=== PATIENT | male | born 1940 | race Caucasian/White ===

== ENCOUNTER 2019-02-18 06:43 | Emergency (ER) | payer MEDICARE, OTHER ==
[2019-02-18] MEDS ORDERED: Sodium Chloride 0.9% 10 ML Syringe FLUSH PRN (07:00)
[2019-02-18] MEDS ORDERED: predniSONE 20 MG Tab PO ONE (08:00)
[2019-02-18] MEDS ORDERED: valACYclovir 1,000 MG Tab PO ONE (08:01)
[2019-02-18] MEDS ORDERED: valACYclovir 500 MG Tab ONE (08:05)
[2019-02-18] MEDS ORDERED: predniSONE 20 MG Tab ONE (08:05)
--- NOTE | 2019-02-18 08:09 | EDM.PDOC ---
ED HPI GENERAL MEDICAL PROBLEM - General Chief Complaint: Neuro Symptoms/Deficits Stated Complaint: POSS STROKE Time Seen by Provider: 02/18/19 06:56 Source of Information: Reports: Patient, Other (friends) History Limitations: Reports: No Limitations - History of Present Illness INITIAL COMMENTS - FREE TEXT/NARRATIVE: A stroke alert was called. The patient presents with right sided facial droop. This started 2 days ago. His last time know well was 02/16/19 at 9am. He says it started with some tingling to the right side of his head. Friends came over this morning to visit and they noticed he had right sided facial droop. He has no other symptoms such as arm or leg weakness. His eye is red and dry. He has no fever, chills, cough, congestion, chest pain, shortness of breath, abdominal pain, nausea or vomiting. Onset: Gradual Duration: Day(s): Location: Reports: Face Severity: Moderate Improves with: Reports: None Worsens with: Reports: None Associated Symptoms: Reports: No Other Symptoms - Related Data Allergies Allergy/AdvReac Type Severity Reaction Status Date / Time No Known Allergies Allergy Verified 02/18/19 06:59 Home Meds: Home Meds predniSONE [Prednisone] 60 mg PO DAILY #18 tablet 02/18/19 [Rx] valACYclovir [Valtrex] 1,000 mg PO TID #21 tab 02/18/19 [Rx] ED ROS GENERAL - Review of Systems Review Of Systems: See Below Constitutional: Reports: No Symptoms HEENT: Reports: No Symptoms Respiratory: Reports: No Symptoms Cardiovascular: Reports: No Symptoms Endocrine: Reports: No Symptoms GI/Abdominal: Reports: No Symptoms : Reports: No Symptoms Musculoskeletal: Reports: No Symptoms Skin: Reports: No Symptoms Neurological: Reports: Other (Right sided facial droop) ED EXAM, NEURO - Physical Exam Exam: See Below Exam Limited By: No Limitations General Appearance: Alert, No Apparent Distress Eye Exam: Right Eye: Conjunctival Injection Ears: Normal External Exam Nose: Normal Inspection Head Exam: Atraumatic, Normocephalic Neck: Normal Inspection Respiratory/Chest: No Respiratory Distress, Lungs Clear, Normal Breath Sounds Cardiovascular: Regular Rate, Rhythm, No Edema, No Murmur GI/Abdominal: Soft, Non-Tender, No Organomegaly, No Mass Neurological: Alert, Other (Right sided facial droop that does not spare his forehead. He has trouble closing his right eye. He has no arm or leg weakness. He walked into the ER just fine.) EKG INTERPRETATION EKG Date: 02/18/19 Time: 06:59 Rhythm: NSR Rate (Beats/Min): 91 [place]: Normal P-Wave: Present QRS: Normal ST-T: Normal QT: Normal Course - Vital Signs Last Recorded V/S: Last Vital Signs Temp 98.2 F 02/18/19 07:37 Pulse 78 02/18/19 07:37 Resp 18 02/18/19 07:37 BP 145/88 H 02/18/19 07:37 Pulse Ox 94 L 02/18/19 07:37 - Orders/Labs/Meds Orders: Active Orders 24 hr Category Date Time Status Cardiac Monitoring [RC] . DIRECTED Care 02/18/19 07:00 Active EKG Documentation Completion [RC] STAT Care 02/18/19 07:01 Active Peripheral IV Care [RC] . DIRECTED Care 02/18/19 07:01 Active Head wo Cont [CT] Stat Exams 02/18/19 07:01 Ordered Head wo Cont [CT] Stat Exams 02/18/19 07:01 Taken COMPREHENSIVE METABOLIC PN,CMP [CHEM] Stat Lab 02/18/19 06:53 Received INR,PT,PROTHROMBIN TIME [COAG] Stat Lab 02/18/19 06:53 Received PTT,PARTIAL THROMBOPLSTIN TIME [COAG] Stat Lab 02/18/19 06:53 Received TROPONIN I [CHEM] Stat Lab 02/18/19 06:53 Received Carboxymethylcellulose Sodium [Refresh Liquigel 1%] Med 02/18/19 08:15 Ordered 1 ml EYERT ASDIRECTED Sodium Chloride 0.9% [Saline Flush] Med 02/18/19 07:00 Active 10 ml FLUSH ASDIRECTED PRN predniSONE Med 02/18/19 08:00 Once 60 mg PO ONETIME ONE valACYclovir [Valtrex] Med 02/18/19 08:05 Once 1,000 mg .ROUTE .STK-MED ONE valACYclovir [Valtrex] Med 02/18/19 08:01 Once 1,000 mg PO ONETIME ONE Peripheral IV Insertion Adult [OM.PC] Stat Oth 02/18/19 07:00 Ordered Medication Orders Sodium Chloride (Saline Flush) 10 ml FLUSH ASDIRECTED PRN PRN Reason: Keep Vein Open Labs: Laboratory Tests 02/18/19 02/18/19 Range/Units 06:52 06:53 WBC 10.63 H (4.23-9.07) K/mm3 RBC 4.68 (4.63-6.08) M/mm3 Hgb 14.9 (13.7-17.5) gm/L Hct 45.3 (40.1-51.0) % MCV 96.8 H (79.0-92.2) fl MCH 31.8 (25.7-32.2) pg MCHC 32.9 (32.2-35.5) g/dl RDW Std Deviation 46.1 H (35.1-43.9) fL Plt Count 420 H (163-337) K/mm3 MPV 10.1 (9.4-12.3) fl Neut % (Auto) 65.7 (34.0-67.9) % Lymph % (Auto) 23.3 (21.8-53.1) % [place] % (Auto) 6.6 (5.3-12.2) % Eos % (Auto) 3.5 (0.8-7.0) Baso % (Auto) 0.6 (0.1-1.2) % Neut # (Auto) 6.99 H (1.78-5.38) K/mm3 Lymph # (Auto) 2.48 (1.32-3.57) K/mm3 [place] # (Auto) 0.70 (0.30-0.82) K/mm3 Eos # (Auto) 0.37 (0.04-0.54) K/mm3 Baso # (Auto) 0.06 (0.01-0.08) K/mm3 POC Glucose 116 H (83-110) mg/dL Meds: Medications Generic Name Dose Route Start Last Admin Trade Name Freq PRN Reason Stop Dose Admin Sodium Chloride 10 ml 02/18/19 07:00 Saline Flush FLUSH ASDIRECTED PRN Keep Vein Open Discontinued Medications Generic Name Dose Route Start Last Admin Trade Name Freq PRN Reason Stop Dose Admin Prednisone Confirm 02/18/19 08:05 Prednisone Administered 02/18/19 08:06 Dose 60 mg .ROUTE .STK-MED ONE Prednisone 60 mg 02/18/19 08:00 Prednisone PO 02/18/19 08:01 ONETIME ONE Valacyclovir HCl Confirm 02/18/19 08:05 Valtrex Administered 02/18/19 08:06 Dose 1,000 mg .ROUTE .STK-MED ONE Valacyclovir HCl 1,000 mg 02/18/19 08:01 Valtrex PO 02/18/19 08:02 ONETIME ONE - Re-Assessments/Exams Free Text/Narrative Re-Assessment/Exam: 02/18/19 08:22 A stroke alert was called. The patient was last known well 02/16/19 at 9am. I ordered a CT of his head, EKG and labs. His EKG looks good. His CT shows expected age-related atrophy and chronic white matter ischemic changes. No acute intra-axial or extra-axial hemorrhage appreciated. His BS is 116 and his WBC is elevated slightly at 10.63. I ordered prednisone 60mg here and valacyclivir. I gave him prescriptions for more. He has smith's palsy. Departure - Departure Time of Disposition: 08:05 Disposition: Home, Self-Care 01 Condition: Good Clinical Impression: Smith's palsy - Discharge Information *PRESCRIPTION DRUG MONITORING PROGRAM REVIEWED*: Not Applicable *COPY OF PRESCRIPTION DRUG MONITORING REPORT IN PATIENT MACK: Not Applicable Prescriptions: predniSONE [Prednisone] 60 mg PO DAILY #18 tablet valACYclovir [Valtrex] 1,000 mg PO TID #21 tab Instructions: Smith Palsy, Adult Referrals: Júnior Chicas MD [Primary Care Provider] - 1 Week Forms: ED Department Discharge Additional Instructions: Take the prednisone 3 pills or 60mg daily for 6 days. Take the valacycliver 1 pill 3 times per day for 7 days. Wear an eye patch at night to protect your eye. Use the refresh gel in your eye 4 times per day or more to keep your eye moist. Follow up with Dr Yanez in a week. Please return if you are worse. - My Orders Last 24 Hours: My Active Orders 02/18/19 06:53 COMPREHENSIVE METABOLIC PN,CMP [CHEM] Stat INR,PT,PROTHROMBIN TIME [COAG] Stat PTT,PARTIAL THROMBOPLSTIN TIME [COAG] Stat TROPONIN I [CHEM] Stat 02/18/19 07:00 Cardiac Monitoring [RC] . DIRECTED Sodium Chloride 0.9% [Saline Flush] 10 ml FLUSH ASDIRECTED PRN Peripheral IV Insertion Adult [OM.PC] Stat 02/18/19 07:01 EKG Documentation Completion [RC] STAT Peripheral IV Care [RC] . DIRECTED Head wo Cont [CT] Stat Head wo Cont [CT] Stat 02/18/19 08:00 predniSONE 60 mg PO ONETIME ONE 02/18/19 08:01 valACYclovir [Valtrex] 1,000 mg PO ONETIME ONE 02/18/19 08:15 Carboxymethylcellulose Sodium [Refresh Liquigel 1%] 1 ml EYERT ASDIRECTED - Assessment/Plan Last 24 Hours: My Active Orders 02/18/19 06:53 COMPREHENSIVE METABOLIC PN,CMP [CHEM] Stat INR,PT,PROTHROMBIN TIME [COAG] Stat PTT,PARTIAL THROMBOPLSTIN TIME [COAG] Stat TROPONIN I [CHEM] Stat 02/18/19 07:00 Cardiac Monitoring [RC] . DIRECTED Sodium Chloride 0.9% [Saline Flush] 10 ml FLUSH ASDIRECTED PRN Peripheral IV Insertion Adult [OM.PC] Stat 02/18/19 07:01 EKG Documentation Completion [RC] STAT Peripheral IV Care [RC] . DIRECTED Head wo Cont [CT] Stat Head wo Cont [CT] Stat 02/18/19 08:00 predniSONE 60 mg PO ONETIME ONE 02/18/19 08:01 valACYclovir [Valtrex] 1,000 mg PO ONETIME ONE 02/18/19 08:15 Carboxymethylcellulose Sodium [Refresh Liquigel 1%] 1 ml EYERT ASDIRECTED
[2019-02-18] MEDS ORDERED: Carboxymethylcellulose Sodium 1% Ophth Gel 15 ML Bottle EYERT SCH (08:15)
--- NOTE | 2019-02-19 08:02 | CT ---
Head CT Technique: Multiple axial sections through the brain were obtained. Intravenous contrast was not utilized. Comparison: No prior intracranial imaging is available. Findings: Ventricles along with basal cisterns and sulci over the convexities are mildly prominent. Minimal diminished density is noted within the periventricular white matter. No other abnormal parenchymal densities are seen. No evidence of intracranial hemorrhage. No midline shift or mass effect is seen. Bone window settings were reviewed which show no acute calvarial abnormality. Slight mucosal thickening seen within the inferior left mastoid sinus. More prominent mucosal thickening is noted within the right mastoid sinus. Soft tissue density is noted within the right middle ear cavity and attic of the right middle ear. Impression: 1. Mastoid findings as noted above. Differential includes otitis media as well as cholesteatoma. 2. Senescent change. 3. No acute intracranial abnormality appreciated. Diagnostic code #9 I mostly agree with preliminary report from [facility] (additional differential given on findings within the right mastoid sinus), finalized on 02/18/19, 8:14 AM Central Time, code #2
== END 2019-02-18 08:36 | disposition home or self-care (01) ==
LOC: JD.ED 06:43
DX: G51.0 Bell's palsy (principal); Z79.899 Other long term (current) drug therapy
CPT/HCPCS: 36415; 70450; 80053; 82962; 84484; 85025; 85610; 85730; 93005; 99284; A9270; 93010

== ENCOUNTER 2020-07-02 10:43 | Emergency (ER) | payer MEDICARE, OTHER ==
[2020-07-02] MEDS ORDERED: FLU Vacc QV2020-21(65YR UP)/PF 240 MCG/0.7 ML Syringe IM ONE (11:00)
[2020-07-02] MEDS ORDERED: Albuterol/Ipratropium 3.0-0.5 MG/3 ML Neb Soln NEB PRN (11:09)
[2020-07-02] MEDS ORDERED: Diphtheria,Pertussis(Acell),Tetanus Vaccine 0.5 ML Syringe IM ONE (11:09)
--- NOTE | 2020-07-02 11:10 | EDM.PDOC ---
ED HPI GENERAL MEDICAL PROBLEM - General Chief Complaint: General Stated Complaint: [facility] Time Seen by Provider: 07/02/20 10:55 Source of Information: Reports: Patient, EMS History Limitations: Reports: No Limitations - History of Present Illness INITIAL COMMENTS - FREE TEXT/NARRATIVE: 80-year-old male presents to the ED per [facility] after apparently pema mbling and [place]. There was some concern initially that he suffered a closed head injury with loss of consciousness but he denies that he hit his head at all and did not lose consciousness. He has some minor scrapes on the palmar aspect of his right hand. A few of them were bleeding. He denies any pain in his neck ribs upper or lower back. He is able to walk with no pain in his hips. 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 He is suffering from upper respiratory tract infection with paroxysmal productive cough and some shortness of breath on walking. He believes this may have caused him to come weak and his legs gave out on him. Cannot remember when his last tetanus shot was. Patient does ambulate with the aid of a cane. Onset: Today, Sudden Onset Date: 07/02/20 Onset Time: 10:15 Duration: Minutes:, Constant Location: Reports: Upper Extremity, Right (Multiple abrasions to his right palmar hand and third finger dorsally.) Quality: Reports: Ache Severity: Mild Improves with: Reports: None Worsens with: Reports: None Context: Reports: Trauma (Sidewalk today.). Denies: Activity, Exercise, Lifting, Sick Contact Associated Symptoms: Reports: Cough, cough w sputum, Malaise, Shortness of Br eath, Weakness. Denies: Confusion, Chest Pain, Diaphoresis, Fever/Chills, Headaches, Loss of Appetite, Nausea/Vomiting, Rash, Seizure, Syncope Treatments FINE UNHAIRER: Reports: Other (see below) (Sinex to help break up his phlegm in his chest.) - Related Data Allergies Allergy/AdvReac Type Severity Reaction Status Date / Time No Known Allergies Allergy Verified 07/02/20 10:52 Home Meds: Home Meds predniSONE [Prednisone] 60 mg PO DAILY #18 tablet 02/18/19 [Rx] valACYclovir [Valtrex] 1,000 mg PO TID #21 tab 02/18/19 [Rx] Doxycycline [Vibra-Tabs] 100 mg PO Q12HR #16 tab 07/02/20 [Rx] Past Medical History Respiratory History: Reports: COPD Musculoskeletal History: Reports: Back Pain, Chronic, Osteoarthritis Endocrine/Metabolic History: Reports: Osteoporosis Dermatologic History: Reports: Other (See Below) - Past Surgical History GI Surgical History: Reports: Hernia, Abdominal Social & Family History - Tobacco Use Tobacco Use Status *Q: Never Tobacco User - Recreational Drug Use Recreational Drug Use: No - Living Situation & Occupation Living situation: Reports: Occupation: Retired ED ROS GENERAL - Review of Systems Review Of Systems: See Below Constitutional: Reports: Malaise, Weakness, Fatigue, Decreased Appetite. Denies: Fever, Chills HEENT: Reports: Glasses, Other Respiratory: Reports: Shortness of Breath (Does have decreased visual acuity due to macular degeneration.), Wheezing, Cough (Active cough. Worse recently since he is contracted an upper respiratory tract infection.). Denies: Pleuritic Chest Pain Cardiovascular: Reports: Blood Pressure Problem, Lightheadedness. Denies: Chest Pain, Claudication, Orthopnea Endocrine: Reports: Fatigue GI/Abdominal: Reports: Constipation, Other (Patient problems with constipation occasional heartburn) : Reports: Frequency, Other Musculoskeletal: Reports: Neck Pain, Back Pain, Joint Pain (His hips low back and both knees.) Skin: Reports: No Symptoms Neurological: Reports: Dizziness, Difficulty Walking (Occasional dizziness.). Denies: Confusion Psychiatric: Reports: No Symptoms Hematologic/Lymphatic: Reports: No Symptoms ( Uses a cane to aid his ambulation due to bad knees.) Immunologic: Reports: No Symptoms ED EXAM, GENERAL - Physical Exam Exam: See Below Exam Limited By: No Limitations General Appearance: Alert, WD/WN, No Apparent Distress, Other (Frustrated about being at the hospital as he did not feel he needed to come by ambulance. Temperature is 36.4 pulse is 76 and sinus respiratory to 16 O2 sats 92% room air BP 149 111 initially but it is come down to 1 5277) Eye Exam: Bilateral Eye: Normal Inspection, PERRL Throat/Mouth: Normal Inspection, Normal Lips, Normal Oropharynx, Other Head: Atraumatic, Normocephalic (Dental injuries.), Other Neck: Normal Inspection, Supple (There are no outward signs of head or facial trauma.), Non-Tender, Full Range of Motion. No: Carotid Bruit, Limited Range of Motion, Lymphadenopathy (L), Lymphadenopathy (R), Thyromegaly Respiratory/Chest: No Respiratory Distress, No Accessory Muscle Use, Rhonchi, Wheezing (Jorge throughout all lung horton. No expiratory wheeze.), Other (Does have a productive sounding cough.) Cardiovascular: Regular Rate, Rhythm, No Edema, No Gallop, No JVD, No Murmur, No Rub Peripheral Pulses: 2+: Carotid (L), Carotid (R), Posterior Tibial (L), Posterior Tibial (R), Dorsalis Pedis (L), Dorsalis Pedis (R) GI/Abdominal: Normal Bowel Sounds, Soft, Non-Tender, No Organomegaly, No Abnormal Bruit, No Mass, Pelvis Stable, Other (Signs of abdominal injuries.) Back Exam: Normal Inspection, Full Range of Motion, Other. No: CVA Tenderness (L), CVA Tenderness (R) Extremities: Other (Mild kyphosis thoracic spine. Evidence of psoriasis both elbows and knees. No significant trauma to either knee either I will either elbow. He has a few scrapes on his right fourth PIP joint and DIP joint and both thenar and hypothenar eminences of his right hand which were cleansed and dressed.) Neurological: Alert, Oriented, CN II-XII Intact, Normal Cognition Psychiatric: Normal Affect, Normal Mood Skin Exam: Warm, Dry, Intact, Normal Color, Other (Superficial abrasions palmar aspect right hand and right dorsal third finger) Course - Vital Signs Last Recorded V/S: Last Vital Signs Temp 36.4 C 07/02/20 10:49 Pulse 76 07/02/20 10:49 Resp 16 07/02/20 10:49 BP 149/111 H 07/02/20 10:49 Pulse Ox 97 07/02/20 11:29 - Orders/Labs/Meds Orders: Active Orders 24 hr Category Date Time Status Influenza Vaccine Charge [RC] .DISCHARGE Care 07/02/20 10:55 Active RT Aerosol Therapy [RC] ASDIRECTED Care 07/02/20 11:09 Active Vaccines to be Administered [RC] PER UNIT ROUTINE Care 07/02/20 11:10 Active Chest 1V Frontal [CR] Stat Exams 07/02/20 11:09 Ordered Albuterol/Ipratropium [DuoNeb 3.0-0.5 MG/3 ML] Med 07/02/20 11:09 Active 3 ml NEB Q4H PRN Medication Orders Albuterol/Ipratropium (Duoneb 3.0-0.5 Mg/3 Ml) 3 ml NEB Q4H PRN PRN Reason: Shortness Of Breath/wheezing Last Admin: 07/02/20 11:28 Dose: 3 ml Documented by: OMID Meds: Medications Generic Name Dose Route Start Last Admin Trade Name Freq PRN Reason Stop Dose Admin Albuterol/Ipratropium 3 ml 07/02/20 11:09 07/02/20 11:28 Duoneb 3.0-0.5 Mg/3 Ml NEB 3 ml Q4H PRN Administration Shortness Of Breath/wheezing Discontinued Medications Generic Name Dose Route Start Last Admin Trade Name Freq PRN Reason Stop Dose Admin Diphtheria/Tetanus/Acell Pertussis 0.5 ml 07/02/20 11:09 Adacel IM 07/02/20 11:10 .ONCE ONE Influenza Virus Vaccine 240 mcg 07/02/20 11:00 Fluzone High-Dose Quad 2020-21 IM 07/02/20 11:01 .ONCE ONE - Radiology Interpretation Free Text/Narrative:: 80-year-old male presents to the ED per [facility] after apparently stumbling and [place] the [place] He scraped up his right hand and his right finger dorsally. He suffered no other major contusions or injuries. Certainly no injuries to his head neck chest or spine or hips. He was given a tetanus shot to update him for the next 10 years. His chest sounded very congested with rhonchi throughout. Chest x-ray done does not show any signs of pneumonia. He did receive a DuoNeb treatment and he felt this helped. Clinically he has bronchitis. Going to place him on doxycycline 100 mg twice daily for the next 8 days to clear out bronchitis since his O2 sats are only 92 to 93% clinically has significant COPD. Advised follow-up with his primary care practitioner if any further problems occur. Departure - Departure Time of Disposition: 11:52 Disposition: Home, Self-Care 01 Condition: Fair Clinical Impression: Fall Qualifiers: Encounter type: initial encounter Qualified Code(s): W19.XXXA - Unspecified fall, initial encounter Abrasion of right hand and fingers Qualifiers: Encounter type: initial encounter Qualified Code(s): S60.511A - Abrasion of right hand, initial encounter; S60.419A - Abrasion of unspecified finger, initial encounter Acute bronchitis Qualifiers: Bronchitis organism: other organism Qualified Code(s): J20.8 - Acute bronchitis due to other specified organisms - Discharge Information *PRESCRIPTION DRUG MONITORING PROGRAM REVIEWED*: Not Applicable *COPY OF PRESCRIPTION DRUG MONITORING REPORT IN PATIENT MACK: Not Applicable Prescriptions: Doxycycline [Vibra-Tabs] 100 mg PO Q12HR #16 tab Instructions: Wound Care, Adult, Abrasion Forms: ED Department Discharge Additional Instructions: Evaluation in the emergency room today in regards to fall outside the post office this morning on the sidewalk. He suffered multiple abrasions to the palmar aspect of your right hand and the right dorsal third finger. Daily cleanse the wounds with soap and water and placed topical antibiotic such as bacitracin Polysporin on them once daily and cover with bandage if needed to keep clean. In regards to your chest infection you have bronchitis and I would suggest using antibiotic doxycycline 100 mg twice daily for the next 8 days to clear up infection. You can continue to use the Mucinex medication as well to help break up the sputum. Follow-up with your personal care physician if any further problems occur. Clinically you do not show evidence of COVID-19 illness. Sepsis Event Note (ED) - Evaluation Sepsis Screening Result: No Definite Risk - Focused Exam Vital Signs: Vital Signs Temp Pulse Resp BP Pulse Ox Pulse Ox 07/02/20 11:29 97 07/02/20 10:49 36.4 C 76 16 149/111 H 92 L - My Orders Last 24 Hours: My Active Orders 07/02/20 10:55 Influenza Vaccine Charge [RC] .DISCHARGE 07/02/20 11:09 RT Aerosol Therapy [RC] ASDIRECTED Chest 1V Frontal [CR] Stat Albuterol/Ipratropium [DuoNeb 3.0-0.5 MG/3 ML] 3 ml NEB Q4H PRN 07/02/20 11:10 Vaccines to be Administered [RC] PER UNIT ROUTINE - Assessment/Plan Last 24 Hours: My Active Orders 07/02/20 10:55 Influenza Vaccine Charge [RC] .DISCHARGE 07/02/20 11:09 RT Aerosol Therapy [RC] ASDIRECTED Chest 1V Frontal [CR] Stat Albuterol/Ipratropium [DuoNeb 3.0-0.5 MG/3 ML] 3 ml NEB Q4H PRN 07/02/20 11:10 Vaccines to be Administered [RC] PER UNIT ROUTINE
--- NOTE | 2020-07-02 12:27 | CR ---
PROCEDURE INFORMATION: Exam: XR Chest, 1 View Exam date and time: 07/02/2020 11:03 AM Age: 80 years old Clinical indication: Cough and wheezing TECHNIQUE: Imaging protocol: XR of the chest Views: 1 view. COMPARISON: DX Chest 2V 10/10/2019 4:05 PM FINDINGS: Lungs: Unremarkable. No consolidation. Pleural space: Unremarkable. No pleural effusion. No pneumothorax. Heart/Mediastinum: Cardiomegaly. Esophageal hiatal hernia. Bones/joints: Degenerative arthritis in the shoulders and visualized spine. Old fracture left 2nd rib. IMPRESSION: No acute findings. Thank you for allowing us to participate in the care of your patient. Dictated and Authenticated by: Valorie Cid MD 07/02/2020 12:51 PM Central Time ([place] & [place]) [facility] DIVISIONBouchra
== END 2020-07-02 12:25 | disposition home or self-care (01) ==
LOC: JD.ED 10:43
DX: S60.412A Abrasion of right middle finger, initial encounter (principal); J20.8 Acute bronchitis due to other specified organisms; M40.204 Unspecified kyphosis, thoracic region; L40.9 Psoriasis, unspecified; R42 Dizziness and giddiness; K59.00 Constipation, unspecified; J44.9 Chronic obstructive pulmonary disease, unspecified; Z23 Encounter for immunization; Z79.899 Other long term (current) drug therapy; W18.30XA Fall on same level, unspecified, initial encounter; Y92.242 Post office as the place of occurrence of the external cause
CPT/HCPCS: 71045; 90471; 90662; 90715; 94640; 99284; G0008; J7620-GY

== ENCOUNTER 2024-05-10 08:52 | Emergency (ER) | payer MEDICARE, OTHER ==
[2024-05-10] MEDS ORDERED: Sodium Chloride 0.9% 10 ML Syringe FLUSH PRN (08:54)
[2024-05-10] MEDS: Iopamidol 755 Mg/ML 100 ML Bottle IVPUSH ONE ×2 (09:09→13:24)
[2024-05-10] MEDS: Sodium Chloride 0.9% 100 ML IV SCH (09:09)
[2024-05-10] MEDS: Sodium Chloride 0.9% 10 ML Syringe FLUSH PRN (09:10)
[2024-05-10 09:35] LABS: BASOPHILS PERCENT AUTO 0.4 % (0.0-1.0); EOSINOPHILS PERCENT AUTO 0.1 % (0.0-6.0); HEMATOCRIT 38.7 % (42.0-52.0); HEMOGLOBIN 13.1 gm/dl (14.0-18.0); IMMATURE GRAN ABSOLUTE AUTO 0.04 K/mm3 (0.00-0.05); IMMATURE GRAN PERCENT AUTO 0.4 % (0.0-0.4); LYMPHOCYTES ABSOLUTE AUTO 0.8 K/mm3 (1.0-4.8); LYMPHOCYTES PERCENT AUTO 7.6 % (24.0-44.0); MEAN CORPUSCULAR HEMOGLOBIN 32.9 pg (28.0-32.0); MEAN CORPUSCULAR HGB CONC 33.9 g/dl (32.0-36.0); MEAN CORPUSCULAR VOLUME 97.2 fl (83.0-99.0); MEAN PLATELET VOLUME 9.5 fl (9.4-12.4); MONOCYTES ABSOLUTE AUTO 0.7 K/mm3 (0.0-0.8); MONOCYTES PERCENT AUTO 6.7 % (0.0-8.0); NEUTROPHILS ABSOLUTE AUTO 9.2 K/mm3 (1.8-7.7); NEUTROPHILS PERCENT AUTO 84.8 % (41.0-71.0); PLATELET COUNT,PLT 217 K/mm3 (150-400); RED BLOOD CELL COUNT 3.98 M/mm3 (4.52-5.90)
[2024-05-10 09:52] LABS: INR 1.05; PROTHROMBIN TIME 11.1 SECONDS (9.7-12.0)
[2024-05-10 09:53] LABS: PTT,PARTIAL THROMBOPLSTIN TIME 25.4 SECONDS (21.7-31.4)
[2024-05-10 09:56] LABS: A/G RATIO 1.6 (1-2); ALBUMIN 3.5 g/dl (3.4-5.0); ANION GAP 11.7 (5-15); BILIRUBIN TOTAL 0.7 mg/dL (0.2-1.0); EST CRCL DRUG DOSING (CG) 44.55 mL/min; POTASSIUM,K 3.7 mEq/L (3.5-5.1); PROTEIN TOTAL,TP 5.7 g/dl (6.4-8.2)
[2024-05-10] MEDS: LORazepam 2 MG/ML SDV IVPUSH ONE ×2 (10:45→15:26)
[2024-05-10] MEDS ORDERED: Sodium Chloride 0.9% 10 ML SDV FLUSH ONE (12:51)
[2024-05-10] MEDS ORDERED: Sodium Chloride 0.9% 100 ML IV SCH (13:00)
== END 2024-05-10 15:00 ==
LOC: JD.ED 08:52
DX: I63.511 Cerebral infarction due to unspecified occlusion or stenosis of right middle cerebral artery (principal)
CPT/HCPCS: 36415; 70450; 70496; 70498; 70551; 71275; 74175; 80053; 84484; 85025; 85610; 85730; 93005; 96374; 96376; 99285; J2060; J3490; Q9967; 93010; 99291; 99292